=== PATIENT | male | born 2000 | race Caucasian/White ===

== ENCOUNTER 2025-05-13 13:53 | Emergency (ER) | payer SELFPAY ==
[2025-05-13] VITALS (15 sets, daily range): BP systolic 131–154; BP diastolic 85–104; PULSE 50–511; TEMP 36.4; O2SAT 96–99; BMI 26.4
--- OUTSIDE RECORDS SUMMARY | 2025-05-13 14:05 | XMS_ITS | Encounter Summary ---
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 Role Phone Unavailable Primary Care Provider Unavailabl e Encounter Details Date Type Department Care Team (Late st Contact Info) Description 06/14/2023 Patient Risk Score ACO Care Management [address] [place] [address] Social History Tobacco Use Types Packs/Day Years Used Date Smoking Tobacco: Never Assessed Sex and Gender Information Value Date Recorded Sex Assigned at Not on file Legal Sex Male 4:03 PM EDT Gender Identity Not on file Sexual Orientation Not on file documented as of this encounter Plan of Treatment Not on file documented as of this encounter Visit Diagnoses Not on filedocumented in this encounter
--- OUTSIDE RECORDS SUMMARY | 2025-05-13 14:05 | XMS_ITS | Encounter Summary ---
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
--- OUTSIDE RECORDS SUMMARY | 2025-05-13 14:05 | XMS_ITS | Clinical Summary ---
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 Name Role Phone Unavailable Primary Care Provider Unavailabl e Social History Tobacco Use Types Packs/Day Years Used Date Smoking Tobacco: Never Assessed Sex and Gender Information Value Date Recorded Sex Assigned at Not on file Legal Sex Male 4:03 PM EDT Gender Identity Not on file Sexual Orientation Not on file Plan of Treatment Health Maintenance Due Date Last Done Comments HIV Screening 1999 Lipid Panel 1999 Yearly Adult Physical 1999 MMR Vaccines (1 of 1 - Stand sean series) 2000 Varicella Vaccines (1 of 2 - 13+ 2-dose series) 2012 HPV Vaccines (1 - Male 3-dos e series) 2014 Hepatitis C Screening 2017 Hepatitis B Vaccines (1 of 3 - 19+ 3-dose series) 2018 DTaP/Tdap/Td Vaccines (1 - Tdap) 2021 COVID-19 Vaccine (1 - 2023-2 5 season) 2024 Influenza Vaccine (Season Ended) 2025 Zoster Vaccines (1 of 2) 2049 HIB Vaccines Aged Out No longer eligi ble based on patient's age to complete this topic Hepatitis A Vaccines Aged Out No long er eligible based on patient's age to complete this topic IPV Vaccines Aged Out No longer eligi ble based on patient's age to complete this topic Meningococcal Vaccine Aged Out No olivier nayely eligible based on patient's age to complete this topic Pneumococcal Vaccine: Pediat rics and At-Risk Adult Patients Aged Out No longer destiny gible based on patient's age to complete this topic Rotavirus Vaccines Aged Out No longer eligible based on patient's age to complete this topic
--- OUTSIDE RECORDS SUMMARY | 2025-05-13 14:05 | XMS_ITS | Encounter Summary ---
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
--- NOTE | 2025-05-13 14:31 | ECG_ITS ---
[facility] Test Date: 2025-05-13 Pat Name: HUMBERTO CALIX Department: Room: - Gender: Male Process Specialist: : 2000 Requested By: [id number] Order Number: [id number] Reading MD: ABEBE HENDRICKS M.D. Measurements Intervals [place] Rate: 51 P: 72 MI: 114 QRS: 87 QRSD: 98 T: 49 QT: 394 QTc: 372 Interpretive Statements 1100 Sinus rhythm 2210 Short MI interval 9150 abnormal ECG No previous ECG available for comparison Electronically Signed On 05-14-2025 18:22:59 EDT by ABEBE HENDRICKS M.D.
--- NOTE | 2025-05-13 14:31 | XR_ITS ---
[facility] [place] [id number] Patient Name: HUMBERTO CALIX MRN: [id number] date: 2000 Sex: M Assigned Patient Location: ER Current Patient Location: ED.MAIN Accession/Order Number: [id number] Exam Date: 05/13/2025 14:50 Report Date: 05/13/2025 14:50 At the request of: QUINN ZAPATA NP Procedure: XR chest 2V Chest 2 views CLINICAL HISTORY: sob COMPARISON: None FINDINGS: Heart normal size. Lungs are clear. No free air. XR/XR chest 2V IMPRESSION: NO ACUTE CARDIOPULMONARY ABNORMALITY. Impression dictated by: Neto López Jr., D.O. 05/13/2025 2:50 PM Dictation Location[facility] Electronically authenticated by: [id number] Y Date: 05/13/2025 14:50
--- NOTE | 2025-05-13 14:55 | ED.GENADUL1 ---
HPI HPI - General Adult General Chief complaint: Chest Pain Stated complaint: CHEST PAINS SOB Time Seen by Provider: 05/13/25 14:07 Source: patient Mode of arrival: walk-in Limitations: no limitations History of Present Illness HPI narrative: 24-year-old male who presents to the emergency department today for evaluation concerns for intermittent shortness of breath. Patient was that since last night he has had some pressure and heaviness to his chest with reported difficulty with deep inspiration. He mentions he intermittently does have a sharp pain to a focal area over the left pectoral region. Currently denies any chest pain. No dizziness or syncope. Denies any cough/cold symptoms or fever/chills. No nausea or vomiting. He endorses he does vape. He otherwise denies any significant medical or surgical history. Related Data Allergies Allergy/AdvReac Type Severity Reaction Status Date / Time No Known Drug Allergies Allergy Verified 05/13/25 14:05 Opioid HPI Opioid Management Most Recent Opioid Data: Last Pain Scale 3 Today, 14:11 Review of Systems ROS Status of ROS 10 or more systems reviewed and unremarkable except as noted in history and below PFSH PFSH Social History Little interest or pleasure in doing things: not at all Feeling down, depressed, or hopeless: not at all Exam Narrative Exam Narrative: Constituational: Awake/ alert, no apparent distress, well hydrated HENMT: normocephalic, external ears normal, moist oral mucous membranes and oropharynx normal Eyes: EOMI and conjunctivae normal Neck: ROM intact Chest: inspection of chest normal Respiratory: Normal respiratory effort, clear to auscultation bilaterally Cardio: regular rate and regular rhythm GI: soft to palpation and non-tender Back: nontender MSK: ROM intact, +NVI Skin: no rashes or petechiae Neuro: no focal deficits Psych: mental status grossly normal Constitutional Vital Signs, click to edit/add: Last Vital Signs Temp 97.6 F 05/13/25 14:05 Pulse 52 L 05/13/25 14:50 Resp 13 05/13/25 14:50 BP 143/102 H 05/13/25 14:08 Pulse Ox 97 05/13/25 14:50 O2 Del Method Room Air 05/13/25 14:05 Course Vital Signs Vital signs: Vital Signs Temperature 97.6 F 05/13/25 14:05 Pulse Rate 61 05/13/25 14:05 Respiratory Rate 18 05/13/25 14:05 Blood Pressure 143/102 H 05/13/25 14:05 Pulse Oximetry 98 05/13/25 14:05 Oxygen Delivery Method Room Air 05/13/25 14:05 Temperature 97.6 F 05/13/25 14:05 Pulse Rate 52 L 05/13/25 14:50 Respiratory Rate 13 05/13/25 14:50 Blood Pressure 143/102 H 05/13/25 14:08 Pulse Oximetry 97 05/13/25 14:50 Oxygen Delivery Method Room Air 05/13/25 14:05 Medical Decision Making MDM Narrative Medical decision making narrative: Patient is a well-appearing 24-year-old male who presented to the emergency department today for evaluation concerns for mild and intermittent shortness of breath. Initial examination vital signs overall stable. He does not appear to be exhibiting any ischemic symptoms and overall does appear euvolemic on exam. No obvious clinical evidence concerning for infectious processes such as URI. EKG without acute changes and troponin is negative x 1. Normal D-dimer. Chest x-ray stable. Labs showed no significant leukocytosis, anemia, thrombocytopenia. Electrolytes including renal antibiotic function stable. Patient was reevaluated multiple times while emergency department had no significant changes in condition. He is ambulating without any concerns or exertional dyspnea. Discussed these findings with the patient including recommendations for supportive care. Patient additionally counseled for 5 minutes on smoking cessation. Advised on follow-up with patient's primary care provider for reevaluation. Discussed signs and symptoms of any worsening condition and when to consider reevaluation by the emergency department. Patient verbalized an understanding of this and is agreeable with the plan to be discharged home. Medical Records Medical records reviewed: Yes I reviewed the patient's medical records Lab Data Lab results reviewed: Yes I reviewed the patient's lab results Labs: Lab Results 05/13/25 Range/Units 14:47 WBC 6.9 (4.0-11.0) 10^3/uL RBC 5.36 (4.70-6.10) 10^6/uL Hgb 15.7 (14.0-18.0) g/dL Hct 46.0 (42.0-54.0) % MCV 85.8 (80.0-94.0) fL MCH 29.3 (25.9-34.0) pg MCHC 34.1 (29.9-35.2) g/dL RDW 12.0 (11.0-15.0) % Plt Count 218 (150-450) 10^3/uL MPV 11.0 (9.5-13.5) fL Neut % (Auto) 54.3 (43.0-75.0) % Lymph % (Auto) 35.6 (20.5-60.0) % Titus % (Auto) 8.8 (1.7-12.0) % Eos % (Auto) 0.6 L (0.9-7.0) % Baso % (Auto) 0.4 (0.2-2.0) % Neut # (Auto) 3.7 (1.4-6.5) 10^3/uL Lymph # (Auto) 2.4 (1.2-3.8) 10^3/uL Titus # (Auto) 0.6 (0.3-0.8) 10^3/uL Eos # (Auto) 0.0 (0.0-0.7) 10^3/uL Baso # (Auto) 0.0 (0.0-0.1) 10^3/uL Abs Immat Gran (auto) 0.02 (0.00-0.03) 10^3/uL Imm/Tot Granulo (auto) 0.3 (0.0-0.5) % D-Dimer <0.19 (<=0.59) mg/L FEU Sodium 143 (136-145) mmol/L Potassium 4.1 (3.5-5.1) mmol/L Chloride 105 (98-107) mmol/L Carbon Dioxide 29.5 (21.0-32.0) mmol/L Anion Gap 12.6 BUN 12.0 (7.0-18.0) mg/dL Creatinine 0.93 (0.70-1.30) mg/dL Est GFR ( Amer) >60 (>=60 mL/min/1.73m^2) Est GFR (Non-Af Amer) >60 (>=60 mL/min/1.73m^2) BUN/Creatinine Ratio 12.9 Glucose 103 (74-106) mg/dL Calcium 9.4 (8.5-10.1) mg/dL Total Bilirubin 0.6 (0.2-1.0) mg/dL AST 13 L (15-37) U/L ALT 23 (16-63) U/L Alkaline Phosphatase 67 (46-116) U/L Troponin I High Sens 4.2 (4.0-76.1) pg/mL Total Protein 7.2 (6.4-8.2) g/dL Albumin 4.3 (3.4-5.0) g/dL Globulin 2.9 g/dL Albumin/Globulin Ratio 1.5 Imaging Data Chest x-ray: Radiologist's impression: ITS Impressions Chest X-Ray 05/13/25 14:31 IMPRESSION: NO ACUTE CARDIOPULMONARY ABNORMALITY. Impression dictated by: Neto López Jr. D.OSaba 05/13/2025 2:50 PM Dictation Location[facility] Electronically authenticated by: [id number] Y Date: 05/13/2025 14:50 ECG Data Attestation: I personally reviewed and interpreted this ECG as follows: (Sinus bradycardia with HR 51, no acute/ischemic changes otherwise.) Discharge Plan Discharge Chief Complaint: Chest Pain Clinical Impression: Mild shortness of breath Patient Disposition: Home, Self-Care Print Language: Frisian Instructions: Shortness of Breath (ED) Additional Instructions: Please stop smoking/vaping -> this increases your risk of chronic conditions such as asthma/COPD, cancer, stroke, heart attack. Follow-up with your primary care provider for reevaluation as discussed. Referrals: JAYASHREE NORRIS [Primary Care Provider, [facility]] - 1 week
[2025-05-13 15:02] LABS: Hematocrit 46.0 % (42.0-54.0); Hemoglobin 15.7 g/dL (14.0-18.0); Immature Granulocytes Abs Auto 0.02 10^3/uL (0.00-0.03); Immature Granulocytes Pct Auto 0.3 % (0.0-0.5); Lymphocytes Absolute Auto 2.4 10^3/uL (1.2-3.8); Mean Corpuscular HGB Conc 34.1 g/dL (29.9-35.2); Mean Corpuscular Hemoglobin 29.3 pg (25.9-34.0); Mean Corpuscular Volume 85.8 fL (80.0-94.0); Platelet Count 218 10^3/uL (150-450); Red Blood Count 5.36 10^6/uL (4.70-6.10); White Blood Count 6.9 10^3/uL (4.0-11.0)
[2025-05-13 15:26] LABS: Alanine Aminotransferase 23 U/L (16-63); Albumin Globulin Ratio 1.5; Albumin Level 4.3 g/dL (3.4-5.0); Alkaline Phosphatase 67 U/L (46-116); Anion Gap 12.6; Aspartate Amino Transferase 13 U/L (15-37); Blood Urea Nitrogen 12.0 mg/dL (7.0-18.0); Calcium 9.4 mg/dL (8.5-10.1); Carbon Dioxide 29.5 mmol/L (21.0-32.0); Chloride 105 mmol/L (98-107); Estimated GFR (African America >60 (>=60 mL/min/1.73m^2); Estimated GFR (Non-African Ame >60 (>=60 mL/min/1.73m^2); Globulin 2.9 g/dL; Glucose 103 mg/dL (74-106); Potassium 4.1 mmol/L (3.5-5.1); Sodium 143 mmol/L (136-145); Total Protein 7.2 g/dL (6.4-8.2)
== END 2025-05-13 15:50 | disposition home or self-care (01) ==
PROVIDERS: Nurse Practitioner; Emergency Provider Emergency Medicine; PCP Family Medicine
DX: R06.02 Shortness of breath (principal); F17.290 Nicotine dependence, other tobacco product, uncomplicated
CPT/HCPCS: 36415; 71046; 80053; 84484; 85025; 85378; 93005; 99285